=== PATIENT | female | born 1945 | race Caucasian/White ===

== ENCOUNTER 2019-02-11 10:49 | Day surgery (SDC) | payer MEDICARE ==
[~2019-02-11 10:49] MED LIST: ACETAMINOPHEN 1,000 MG/100 ML BTL IVPB ONE; CEFAZOLIN 2 Gram 2 GM/50 ML BAG IVPB ONE
[2019-02-11] MEDS ORDERED: LIDOCAINE 2% MDV (20MG/ML) 20ML VIAL IV ONE (10:50)
[2019-02-11] MEDS ORDERED: FENTANYL PF 100MCG/2ML VIAL IV ONE (10:50)
[2019-02-11] MEDS ORDERED: PROPOFOL 10 MG/ML VIAL IV ONE (10:50)
[2019-02-11] MEDS ORDERED: MORPHINE SULFATE 4 MG/ML VIAL IVP ONE (10:50)
[2019-02-11] MEDS ORDERED: ONDANSETRON HCL IV 4 MG/2 ML VIAL IVP ONE (10:50)
[2019-02-11] MEDS ORDERED: KETOROLAC 30 MG/ML VIAL IVP ONE (10:50)
[2019-02-11] MEDS ORDERED: MIDAZOLAM HCL 2MG/2ML VIAL IV ONE (10:50)
[2019-02-11 11:17] LABS: ABSOLUTE NEUTROPHIL COUNT 4.78; BASO % 0.6 % (0-6); EOS % 2.4 % (0-6); GRAN % 61.5 % (47-80); HEMOGLOBIN 14.4 gm/dl (11.6-16.0); MEAN CELL VOLUME 92.8 fl (81-97); MEAN CORPUSCULAR HEMOGLOBIN 30.4 pg (27-33); MEAN CORPUSCULAR HGB CONC 32.7 g/dl (32-36); MEAN PLATELET VOLUME 11.1 fl (7.4-10.4); MONO % 9.5 % (0-9); PLATELET COUNT 237 K/uL (130-400); RED BLOOD COUNT 4.74 M/uL (3.80-5.40); RED CELL DISTRIBUTION WIDTH 14.1 % (11.5-14.5); WHITE BLOOD COUNT W/O DIFF 7.8 K/uL (4.2-12.2)
[2019-02-11 11:24] LABS: BLOOD UREA NITROGEN 20 mg/dL (8-23); CREATININE 0.9 mg/dL (0.5-0.9); EST GLOMERULAR FILTRATION RATE > 60 mL/min; GLUCOSE,RANDOM 236 mg/dL (74-109)
[2019-02-11] MEDS ORDERED: 0.9 % SODIUM CHLORIDE 1000ML 1,000 ML IV ONE (11:40)
[2019-02-11] MEDS ORDERED: BUPIVACAINE 0.5% W/EPI MPF 30 ML VIAL SQ ONE (13:36)
[2019-02-11] MEDS ORDERED: MORPHINE SULFATE 5 MG/ML PREFILLED SYRINGE IM ONE (13:42)
[2019-02-11] MEDS ORDERED: METHYLPREDNISOLONE 40MG/VIAL IU ONE (13:42)
--- NOTE | 2019-02-12 15:40 | Operative Note ---
DATE OF SURGERY: 02/11/2019 PREOPERATIVE DIAGNOSIS: Internal derangement of left knee. POSTOPERATIVE DIAGNOSES: 1. Moderate synovitis. 2. Complex tear involving the anterior and lateral horn of the lateral meniscus. 3. 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 OPERATION: 1. Left knee arthroscopy with limited synovectomy. 2. Left knee arthroscopy with near complete lateral meniscectomy. 3. Left knee arthroscopy with chondroplasty of the lateral femoral condyle and lateral tibial plateau. SURGEON: Michael Hanna M.D. ANESTHESIA: General. PREPARATION: Chloraprep. INDIVIDUAL CONSIDERATIONS: None. PROCEDURE: The patient was taken to the operating room and placed supine on the operating room table, had a successful induction of a general anesthetic. Her left lower extremity was prepped and draped in the usual fashion. The patient had a superior lateral inflow cannula placed. A bloody effusion was drained. The knee was inflated with normal saline. An inferior medial and an inferior lateral portal were made in a similar fashion. The arthroscope was introduced through the inferior lateral portal up into the pouch. The patellofemoral joint was normal. Medial compartment structures were normal. In the notch the cruciates were normal, but I could see an unstable portion of the internal lateral meniscus impinging. I went ahead and debrided this out and then I had a good look at the lateral compartment, basically a complex tear involving the anterior and lateral horns with multiple unstable flaps. This was debrided back to a stable rim with basket forceps and a shaver. There was grade 3 to 4 change on the lateral femoral condyle and lateral tibial plateau with large areas of unstable cartilage. This was debrided back to stable cartilage with a shaver. A limited synovectomy again was performed in the gutters and the pouch and no loose bodies were seen. After irrigation, the portals were closed with moy and 15 mL of 0.5% Marcaine with epinephrine along with 4 mg of morphine and 40 mg of Depo-Medrol were injected into the knee and a sterile bulky compressive dressing was applied. The patient tolerated the procedure well. The needle and sponge counts were correct. Estimated blood loss was minimal. She was taken back to recovery in good condition. There were no complications. MARNI
== END 2019-02-11 14:39 | disposition home or self-care (01) ==
LOC: SUR 10:49
PROVIDERS: ATTEND Orthopaedic Surgery
DX: S83.272A Complex tear of lateral meniscus, current injury, left knee, initial encounter (principal); M65.9 Synovitis and tenosynovitis, unspecified; M94.262 Chondromalacia, left knee; E11.9 Type 2 diabetes mellitus without complications; Z79.4 Long term (current) use of insulin; I10 Essential (primary) hypertension; E78.00 Pure hypercholesterolemia, unspecified; E03.9 Hypothyroidism, unspecified
CPT/HCPCS: 29881; 29875; 01400; 85025; 80048; 93005; J1885; J2405; J3010; J0690; J2270; J1030; J7030